=== PATIENT | male | born 1945 | race Hispanic/Latino ===

== ENCOUNTER 2023-10-14 07:25 | Day surgery (SDC) | payer OTHER, MEDICARE ==
[2023-10-12 10:26] VITALS: BP 117/60; PULSE 79; RESP 16
[2023-10-12 10:35] LABS: BASOPHILS # (AUTO) 0.06 K/uL (0.00-0.20); BASOPHILS % (AUTO) 0.8 % (0.0-5.0); EOSINOPHILS # (AUTO) 0.08 K/uL (0.00-0.70); HEMATOCRIT 46.6 % (42-54); IMMATURE GRANULOCYTE ABSOLUTE 0.02 K/uL (0-1); LYMPHOCYTES # (AUTO) 2.5 K/uL (1.0-4.8); LYMPHOCYTES % (AUTO) 31.5 % (21.0-51.0); MEAN CORPUSCULAR HEMOGLOBIN 32.7 pg (27.0-33.0); MEAN CORPUSCULAR HGB CONC 34.3 g/dL (32.0-36.0); MEAN CORPUSCULAR VOLUME 95.3 fL (79-99); MONOCYTES # (AUTO) 0.3 K/uL (0.1-1.0); MONOCYTES % (AUTO) 4.3 % (3.0-13.0); NEUTROPHILS # (AUTO) 4.9 K/uL (1.8-7.7); NEUTROPHILS % (AUTO) 62.1 % (40.0-77.0); PLATELET COUNT (AUTO) 208 K/uL (130-400); RED BLOOD CELL COUNT(AUTO) 4.89 MIL/uL (4.50-6.20); RED CELL DISTRIBUTION WIDTH 13.6 % (11.0-15.5); WHITE BLOOD COUNT (AUTO) 7.9 K/uL (4.8-10.8)
[2023-10-12 10:43] LABS: CREATININE 1.1 mg/dL (0.5-1.5); POTASSIUM 3.8 mmol/L (3.5-5.1)
[2023-10-12 10:53] LABS: INR 1.07 (0.85-1.15); PROTHROMBIN TIME 12.4 SEC (9.6-11.6)
[2023-10-12 10:55] LABS: PARTIAL THROMBOPLASTIN TIME 29.7 SEC (26.3-35.5)
[2023-10-12 11:14] LABS: B-TYPE NATRIURETIC PEPTIDE 324 pg/mL (0-100)
[~2023-10-14] VITALS: Ht 175.3 cm; Wt 70.3 kg
[2023-10-14] VITALS (17 sets, daily range): BP systolic 101–152; BP diastolic 54–78; PULSE 68–87; RESP 12–19
[~2023-10-14 07:25] MED LIST: APIX5TAB PO; EMPA10TA PO; METF-446 PO; OMEP20TA20 PO; SACU1TAB7 PO
[2023-10-14] MEDS ORDERED: FENTANYL CITRATE PF 50 MCG/1 ML 2ML VIAL ONE (08:09)
[2023-10-14] MEDS ORDERED: LIDOCAINE HCL 2% VISCOUS 15 ML UDCUP ONE (08:09)
[2023-10-14] MEDS ORDERED: 0.9%NACL 1000ML 1,000 ML IV ONE (08:10)
[2023-10-14] MEDS ORDERED: MIDAZOLAM HCL 1 MG/ML 2ML VIAL ONE (08:10)
[2023-10-14] MEDS ORDERED: METO-409 PO (08:53)
[2023-10-14] MEDS ORDERED: FLUMAZENIL 0.1MG/1ML 5ML VIAL IV ONE (10:04)
[2023-10-14] MEDS ORDERED: NALOXONE HCL 0.4 MG/1 ML ML ONE (10:04)
== END 2023-10-14 11:35 | disposition home or self-care (01) ==
LOC: DAH 07:25
PROVIDERS: ATTEND Internal Medicine Interventional Cardiology
DX: I42.9 Cardiomyopathy, unspecified (principal); I08.0 Rheumatic disorders of both mitral and aortic valves; I25.10 Atherosclerotic heart disease of native coronary artery without angina pectoris; I45.10 Unspecified right bundle-branch block; E11.43 Type 2 diabetes mellitus with diabetic autonomic (poly)neuropathy; E11.59 Type 2 diabetes mellitus with other circulatory complications; E78.2 Mixed hyperlipidemia; I11.0 Hypertensive heart disease with heart failure; I50.22 Chronic systolic (congestive) heart failure; Z79.899 Other long term (current) drug therapy
CPT/HCPCS: 80048; 83880; 85025; 85610; 85730; 36415; 71045; 93005; 82948 ×2; 93312; J3010; J7030; J2250; A4620; A4215; A4223 ×3; A7002; A4222; A4221; A4663; A4216 ×2; A4606; 99152; J2310; J3490; G0500